=== PATIENT | female | born 1955 | race Caucasian/White ===

== ENCOUNTER 2016-09-30 16:11 | Emergency (ER) | payer BC ==
--- NOTE | 2016-09-30 17:17 | RAD ---
INDICATION: Pain and swelling at the right small toe 2 days after "jamming injury" TECHNIQUE: 3 views of the right small toe were obtained. FINDINGS: Obliquely oriented lucent lines along the right small toe proximal phalanx are consistent with nondisplaced fractures. The remaining visualized bones are intact and properly aligned. IMPRESSION: Nondisplaced fracture involving the right small toe proximal phalanx.
--- NOTE | 2016-09-30 17:18 | UC ---
Lower Extremity/Ankle HPI - HPI Summary HPI Summary: patient jammed toe on a chair two days ago. brusied and swollen. - History of Current Complaint Chief Complaint: UCLowerExtremity Stated Complaint: TOE INJURY Time Seen by Provider: 09/30/16 16:41 Hx Obtained From: Patient ?: No Onset/Duration: Sudden Onset, Lasting Days Severity Initially: Moderate Severity Currently: Moderate Pain Intensity: 4 Pain Scale Used: 0-10 Numeric Aggravating Factor(s): Standing, Ambulation Alleviating Factor(s): Nothing Able to Bear Weight: Yes - Allergies/Home Medications Allergies/Adverse Reactions: Allergies Allergy/AdvReac Type Severity Reaction Status Date / Time Penicillins [PCN] Allergy Rash Verified 09/30/16 16:35 Home Medications: Home Medications Albuterol HFA INHALER* [Ventolin HFA Inhaler*] 09/30/16 [History] Fluticasone-Salmeterol 250-50* [Advair Diskus 250-50*] 09/30/16 [History Confirmed 09/30/16] Varenicline Tartrate [Chantix] DAILY 09/30/16 [History] PMH/Surg Hx/FS Hx/Imm Hx Previously Healthy: Yes Respiratory History Of: Reports: Asthma Cancer History Of: Denies: Breast Cancer - Surgical History Surgical History: Yes Surgery Procedure, Year, and Place: PARTIAL hysterectomy 1998, BILAT WRIST CARPAL TUNNEL "EARLY ", [facility] - Family History Known Family History: Positive: Hypertension - Social History Alcohol Use: Occasionally Substance Use Type: None Smoking Status (MU): Light Every Day Tobacco Smoker Type: Cigarettes Amount Used/How Often: 2 CIG/DAY Household Exposure Type: Cigarettes Review of Systems Constitutional: Negative Skin: Bruising Eyes: Negative ENT: Negative Respiratory: Negative Cardiovascular: Negative Gastrointestinal: Negative Genitourinary: Negative Motor: Negative Neurovascular: Negative Musculoskeletal: Negative Neurological: Negative Psychological: Negative All Other Systems Reviewed And Are Negative: Yes Physical Exam Triage Information Reviewed: Yes Appearance: Well-Appearing, Well-Nourished, Pain Distress Vital Signs: Initial Vital Signs Temp 98.2 F 09/30/16 16:29 Pulse 65 09/30/16 16:29 Resp 16 09/30/16 16:29 BP 133/72 09/30/16 16:29 Pulse Ox 99 09/30/16 16:29 Vital Signs Reviewed: Yes Eye Exam: Normal Eyes: Positive: Conjunctiva Clear ENT Exam: Normal ENT: Positive: Normal ENT inspection, Pharynx normal, TMs normal Dental Exam: Normal Neck exam: Normal Neck: Positive: Supple, Nontender, No Lymphadenopathy Respiratory Exam: Normal Respiratory: Positive: Chest non-tender, Lungs clear, Normal breath sounds Cardiovascular Exam: Normal Cardiovascular: Positive: RRR, No Murmur, Pulses Normal Abdominal Exam: Normal Abdomen Description: Positive: Nontender, No Organomegaly, Soft Bowel Sounds: Positive: Present Musculoskeletal Exam: Normal Musculoskeletal: Positive: Strength Intact, ROM Intact, No Edema Neurological Exam: Normal Neurological: Positive: Alert, Muscle Tone Normal Psychological Exam: Normal Skin Exam: Normal Lower Extremity Course/Dx - Course Course Of Treatment: hx obtained, exam performed, meds reviewed, xray obtained, toe hayley taped. - Differential Dx/Diagnosis Differential Diagnosis/HQI/PQRI: Contusion, Dislocation, Fracture (Closed), Sprain, Strain Provider Diagnoses: non displaced fracture of the 5th right toe Discharge - Discharge Plan Condition: Stable Disposition: HOME Patient Education Materials: Toe Fracture (ED) Additional Instructions: use the hayley tape as tolerated, Ibuprofen for pain and swelling. elevated foot at rest. If symptoms worsen follow up as needed.
[2016-09-30 17:28] VITALS: BP 133/72
== END 2016-09-30 17:35 | disposition home or self-care (01) ==
LOC: UCEAST 16:11
DX: S92.514A Nondisplaced fracture of proximal phalanx of right lesser toe(s), initial encounter for closed fracture (principal); W23.0XXA Caught, crushed, jammed, or pinched between moving objects, initial encounter; Y93.9 Activity, unspecified; Y92.9 Unspecified place or not applicable; J45.909 Unspecified asthma, uncomplicated; Z88.0 Allergy status to penicillin; F17.210 Nicotine dependence, cigarettes, uncomplicated
CPT/HCPCS: 99213; G0463

== ENCOUNTER 2018-09-03 06:48 | Day surgery (SDC) | payer BC ==
--- NOTE | 2018-08-30 11:14 | HP ---
AMENDED REPORT NOW INCLUDES DESIGNATED COSIGNER PREOPERATIVE HISTORY AND PHYSICAL: DATE OF SURGERY/ADMISSION: 09/03/18 DATE OF OFFICE VISIT/ENCOUNTER: 08/11/18 ATTENDING SURGEON: Carrie Maxwell MD * (DICTATED BY INDIRA PARKS) PROCEDURE: Right thumb metacarpophalangeal joint fusion. CHIEF COMPLAINT: Right thumb pain. HISTORY OF PRESENT ILLNESS: This is a 63-year-old female who complains of pain in her right thumb. This has been ongoing for a few months and the pain has gotten quite a bit worse recently. She denies any past injury. Any use of her hand increases the pain. She uses ibuprofen, which gives her a little bit of relief but the pain has gotten to the point to where it is interfering with her activities of daily life. She is interested in surgical intervention at this time. X-rays of the right thumb show significant MP joint arthritis. PAST MEDICAL HISTORY: Asthma. PAST SURGICAL HISTORY: 1. Hysterectomy. 2. Bilateral carpal tunnel releases. 3. Bilateral hand trigger finger releases. 4. Tonsillectomy. MEDICATIONS: 1. Advair Diskus twice daily. 2. Albuterol sulfate via nebulizer 4 times daily as needed. 3. Fluticasone propionate 1 spray each nostril daily. 4. Prednisone 10 mg, the patient is currently tapering off of this. It was prescribed for an asthma exacerbation. ALLERGIES: PENICILLIN causes hives. FAMILY MEDICAL HISTORY: Noncontributory. SOCIAL HISTORY: The patient is employed at [employer] in [employer]. She is a current smoker approximately 8 to 10 cigarettes per day, has smoked for 30 plus years. She denies recreational drug use. She drinks alcohol on occasion. REVIEW OF SYSTEMS: Negative for general, cephalic, cardiovascular, respiratory , GI, , other musculoskeletal, integumentary, endocrine, neurologic, and hematologic symptoms. Infectious Disease is negative for MRSA, hepatitis C, HIV. PHYSICAL EXAMINATION GENERAL: Well-developed, well-nourished 63-year-old female, in no acute distress. VITAL SIGNS: Height 5 feet 3 inches, weight 130 pounds. Pulse rate 64, blood pressure 132/84. HEENT: Normocephalic, atraumatic. Pupils are equal, round, and reactive to light and accommodation. Extraocular movements are intact. Throat is clear. NECK: Supple. No palpable lymph nodes. PULMONARY: Lungs are clear to auscultation bilaterally. No wheezes, rales, or rhonchi. CARDIOVASCULAR: Regular rate and rhythm. S1, S2. No murmurs, rubs or gallops. No edema. ABDOMEN: Positive bowel sounds. Soft, nontender. NEUROLOGICAL: Alert and oriented x3. Cranial nerves II through XII are intact. Sensation is intact to light touch. MUSCULOSKELETAL: On exam of her right thumb, she has swelling and tenderness at the MP joint. There is significant loss of motion compared to the left thumb. Tenderness to palpation at the MP joint. Neurovascular function is intact. She has good IP and CMC motion of the right thumb. SKIN: Intact. DIAGNOSTIC STUDIES: X-rays AP, lateral and oblique of the right thumb showed the MP joint had significant degenerative arthritis. IMPRESSION: Right thumb metacarpophalangeal joint arthritis. PLAN: The patient is scheduled to undergo a right thumb metacarpophalangeal joint fusion with Dr. Maxwell on 09/03/18. She will return to the office 10 days postop for followup and suture removal. A prescription for [place] was e-scribed to the patient's pharmacy for postoperative pain management. INDIRA PARKS [id number]/[facility] #: [id number] FELICE
[~2018-09-03 06:48] MED LIST: Buffered Lidocaine 0.9% SYRIN* 5 ML/SYR SYRINGE INTRADERM ONE; Famotidine IV* 10 MG/ML 2 ML (20 mg) IV ONE; Lactated Ringers 1000 ML Bag* 1,000 ML IV SCH
[2018-09-03] MEDS ORDERED: ROPIVACAINE 5 MG/ML 30 ML BTL (0.5%) ONE (07:09)
[2018-09-03] MEDS ORDERED: Clindamycin 900 MG/D5W BAG(*) 900 MG/50 ML BAG IVPB ONE (07:12)
[2018-09-03] MEDS ORDERED: Famotidine IV* 10 MG/ML 2 ML (20 mg) ONE (07:12)
[2018-09-03] MEDS ORDERED: fentaNYL* 50 MCG/ML 2 ML VIAL (100 MCG VIAL) ONE (07:43)
[2018-09-03] MEDS ORDERED: Midazolam* 1 MG/ML 5 ML VIAL (5 MG) ONE (07:43)
[2018-09-03] MEDS ORDERED: Dexamethasone IV* 4 MG/ML 1 ML (4 MG) ONE (08:51)
[2018-09-03] MEDS ORDERED: Ketorolac INJ* 30 MG/ML 1 ML VIAL ONE (08:51)
[2018-09-03] MEDS ORDERED: Ondansetron INJ* 2 MG/ML VIAL ONE (08:51)
[2018-09-03] MEDS ORDERED: Lidocaine 2% PF * 5 ML VIAL ONE (08:51)
[2018-09-03] MEDS ORDERED: Propofol* 10 MG/ML 20 ML BTL ONE (08:51)
[2018-09-03] MEDS ORDERED: DiMENhydriNATE IV* 50 MG/ML VIAL IV PUSH PRN (09:23)
[2018-09-03] MEDS ORDERED: Naloxone* 0.4 MG/ML 1 ML VIAL IV PRN (09:23)
[2018-09-03] MEDS ORDERED: HYDROmorphone INJ1* 1 MG/ML SYRINGE IV PRN (09:23)
[2018-09-03] MEDS ORDERED: oxyCODONE TAB* 5 MG TAB PO PRN (09:23)
[2018-09-03] MEDS ORDERED: Acetaminophen TAB* 325 MG PO PRN (09:23)
[2018-09-03] MEDS ORDERED: HYDROcodone/ACETAMIN 5-325 MG* 1 TAB ONE (09:44)
[2018-09-03 10:28] VITALS: BP 139/80
--- NOTE | 2018-09-03 11:54 | OP ---
DATE OF OPERATION: 09/03/18 [facility] DATE OF : 53 SURGEON: Carrie Maxwell MD CERTIFIED DIABETES EDUCATOR: INDIRA Lopez ANESTHESIA: General. PRE-OP DIAGNOSIS: Right thumb metacarpophalangeal joint arthritis. POST-OP DIAGNOSIS: Right thumb metacarpophalangeal joint arthritis. OPERATIVE PROCEDURE: Right thumb metacarpophalangeal joint fusion. ESTIMATED BLOOD LOSS: Zero. TOURNIQUET TIME: About 40 minutes. INDICATIONS: April is a 63-year-old female with painful arthritis at the MP joint of her right thumb. She presents for fusion. DESCRIPTION OF PROCEDURE: The patient was brought to the operating room, was given a general anesthetic and placed in the supine position on the operating table with the tourniquet around her right upper arm. The skin of her right upper extremity was prepped and draped in the usual sterile fashion. The hand and forearm were exsanguinated and the tourniquet elevated to 250 mmHg. A longitudinal incision was made on the dorsal aspect of the MP joint, it was dissected down to the extensor mechanism. The extensor kaur was incised radial to the extensor tendon and the tendon was retracted ulnarly. The MP joint capsule was then incised. Osteophytes on the metacarpal head were removed and the saw was used to make an angled cut on the metacarpal head. The rongeur was used to remove the subchondral bone of the proximal phalanx. The two bones were then approximated and their position checked on the C-arm and found to be good. A guidewire from the mini [employer]ut[employer] set was driven across the MP joint from proximal to distal and then we drilled proximally and placed the screw in the metacarpal head and then up into the shaft of the proximal phalanx. The position of the joint and the screw were checked on the C-arm in the AP and lateral views and there was good apposition of the bony fragments. The wound was irrigated and the extensor kaur was repaired after repairing the joint capsule, both with 4-0 nylon suture. The extensor mechanism was repaired. The skin edges were reapproximated with 4-0 nylon suture. The wound was dressed with Xeroform, 4x4, Webril and a thumb spica splint. The patient tolerated the procedure well, was brought to the recovery room in good condition. [id number]/[facility] #: [id number]
== END 2018-09-03 10:25 | disposition home or self-care (01) ==
LOC: OREAST 06:48
PROVIDERS: ATTEND Orthopaedic Surgery
DX: M18.11 Unilateral primary osteoarthritis of first carpometacarpal joint, right hand (principal); F17.210 Nicotine dependence, cigarettes, uncomplicated; J45.909 Unspecified asthma, uncomplicated
CPT/HCPCS: 76000; C1713; C1776; J1100; J1885; J2250; J2405; J2704; J2795; J3010